=== PATIENT | female | born 1955 | race Caucasian/White ===

== ENCOUNTER 2023-12-20 17:22 | Observation (INO) ==
[2023-12-20] MEDS ORDERED: Iodixanol (CONTRAST) 320 MG/ML 100 ML SDV IV ONE (17:56)
[2023-12-20 18:06] LABS: ABS Eosinophils 0.1 10^3/uL (0.0-0.5); ABS Lymphocytes 2.1 10^3/uL (1.0-4.8); ABS Monocytes 0.6 10^3/uL (0.0-0.9); ABS Neutrophils 3.5 10^3/uL (1.5-7.6); ABS Nucleated RBC 0.01 10^3/ul; Eosinophil % 2.1 %; Hematocrit 46.6 % (35-45); Hemoglobin 16.2 g/dL (11.5-14.3); Mean Corpuscular Hemoglobin 32.3 pg (27-33); Mean Corpuscular Hgb Conc 34.8 g/dL (31-36); Mean Corpuscular Volume 92.9 fL (80-97); Mean Platelet Volume 6.6 fL (7.5-11.2); Nucleated Red Blood Cells % 0.2 %/100WBC (0.0-0.8); Platelet Count 410 10^3/uL (150-450); Red Blood Count 5.02 10^6/uL (3.63-4.92); White Blood Count 6.3 10^3/uL (3.8-11.8)
[2023-12-20 18:14] LABS: Activated Partial Thrombo Time 35.6 seconds (26.0-38.0); INR 0.98 (0.83-1.13)
[2023-12-20 18:26] LABS: Albumin 5.1 g/dL (3.2-5.2); Albumin/Globulin Ratio 1.5 (1-3); Calcium 10.1 mg/dL (8.6-10.3); Creatinine, Serum 0.9 mg/dL (0.51-0.95); Direct Bilirubin 0.1 mg/dL (0.03-0.18); Globulin 3.4 g/dL (2-4); HDL Cholesterol 54.3 mg/dL; Indirect Bilirubin 0.3 mg/dL (0.3-1.0); Potassium 3.9 mmol/L (3.5-5.0); Total Bilirubin 0.4 mg/dL (0.2-1.0); Total Protein 8.5 g/dL (6.4-8.9); eGFR CKD-EPI 70.1 (>60)
[2023-12-20 19:01] LABS: Urine Appearance Clear; Urine Bilirubin Negative (Negative); Urine Blood Negative (Negative); Urine Color Straw; Urine Glucose Negative (Negative); Urine Ketones Negative (Negative); Urine Nitrite Negative (Negative); Urine Protein Negative (Negative); Urine Urobilinogen Negative (Negative)
[2023-12-20 19:22] LABS: Urine Benzodiazepine Screen None Detected (None Detect); Urine Cannabinoids Screen Presumptive Positive (None Detect); Urine Opiates Screen None Detected (None Detect)
[2023-12-20 19:24] LABS: High Sensitivity Troponin 1 Hr 3 pg/mL (<15)
[2023-12-20 20:32] LABS: Urine Buprenorphine Screen None Detected (None Detect); Urine Fentanyl Screen None Detected (None Detect); Urine Hydrocodone Screen None Detected (None Detect)
[2023-12-20 22:36] LABS: Rapid COVID-19 Molecular Undetected (Undetected)
[2023-12-20 22:45] LABS: Influenza A Molecular Negative (Negative); Influenza B Molecular Negative (Negative)
[2023-12-21] MEDS: Enoxaparin 40 MG/0.4 ML SYR SUBCUT SCH (06:32)
[2023-12-21 08:20] LABS: ABS Basophils 0.1 10^3/uL (0.0-0.1); ABS Eosinophils 0.1 10^3/uL (0.0-0.5); ABS Lymphocytes 1.1 10^3/uL (1.0-4.8); ABS Monocytes 0.7 10^3/uL (0.0-0.9); ABS Neutrophils 5.6 10^3/uL (1.5-7.6); Eosinophil % 1.2 %; Hematocrit 40.9 % (35-45); Hemoglobin 14.1 g/dL (11.5-14.3); Lymphocyte % 14.6 %; Mean Corpuscular Hgb Conc 34.6 g/dL (31-36); Mean Corpuscular Volume 92.4 fL (80-97); Mean Platelet Volume 6.5 fL (7.5-11.2); Nucleated Red Blood Cells % 0.1 %/100WBC (0.0-0.8); Platelet Count 352 10^3/uL (150-450); Red Blood Count 4.42 10^6/uL (3.63-4.92); Red Cell Distribution Width 13.7 % (12-17); White Blood Count 7.6 10^3/uL (3.8-11.8)
[2023-12-21 08:35] LABS: Calcium 9.6 mg/dL (8.6-10.3); Creatinine, Serum 0.97 mg/dL (0.51-0.95)
[2023-12-21 16:41] LABS: TSH Ultra Thyroid Stim Horm 1.26 mcIU/mL (0.34-5.60)
[2023-12-21 16:52] LABS: Folate 9.37 ng/mL (5.90-24.80)
[2023-12-22] MEDS: Enoxaparin 40 MG/0.4 ML SYR SUBCUT SCH (05:28)
[2023-12-22 05:59] LABS: ABS Eosinophils 0.1 10^3/uL (0.0-0.5); ABS Lymphocytes 1.4 10^3/uL (1.0-4.8); ABS Monocytes 0.8 10^3/uL (0.0-0.9); ABS Neutrophils 2.5 10^3/uL (1.5-7.6); Eosinophil % 2.8 %; Lymphocyte % 27.9 %; Mean Corpuscular Hemoglobin 31.5 pg (27-33); Mean Corpuscular Hgb Conc 34.1 g/dL (31-36); Mean Corpuscular Volume 92.5 fL (80-97); Mean Platelet Volume 6.7 fL (7.5-11.2); Nucleated Red Blood Cells % 0.1 %/100WBC (0.0-0.8); Platelet Count 352 10^3/uL (150-450); Red Blood Count 4.43 10^6/uL (3.63-4.92); Red Cell Distribution Width 13.7 % (12-17); White Blood Count 4.9 10^3/uL (3.8-11.8)
[2023-12-22 06:20] LABS: Calcium 9.5 mg/dL (8.6-10.3); Creatinine, Serum 0.87 mg/dL (0.51-0.95); Magnesium 1.9 mg/dL (1.9-2.7); Potassium 3.9 mmol/L (3.5-5.0)
[2023-12-23] MEDS: Enoxaparin 40 MG/0.4 ML SYR SUBCUT SCH (05:06)
[2023-12-23 05:38] VITALS: BP 115/73
== END 2023-12-23 09:05 | disposition home or self-care (01) ==
LOC: EDHOLD 17:22 → ED 17:22 → SUATTDRO 22:58 → MEDTELE 12-21 01:40
PROVIDERS: ADMIT Internal Medicine; ATTEND Family Medicine